=== PATIENT | female | born 1940 | race Caucasian/White ===

== ENCOUNTER 2019-09-23 01:26 | Inpatient (IN) | payer MEDICARE ==
[~2019-09-23] VITALS: Ht 162.6 cm; Wt 77.2 kg
[~2019-09-23 01:26] MED LIST: IBUPROFEN600 MG ORAL
--- NOTE | 2019-09-23 02:00 | NUR ---
ED Nurse Note: pt presents to ED s/p syncope at 0000 today. pt states that she was vomiting and has been feeling nauseated and when she returned from the restroom, she felt dizzy then lost consciousness. pt states she hit her head and has redness and swelling to her forehead. pt states she has a PIEDRA now and is experiencing some neck stiffness. pt denies ever experiencing this before and notes that she has had sinus congestion for a week
[2019-09-23 02:02] VITALS: BP 112/63
--- NOTE | 2019-09-23 02:04 | Emergency Room Report ---
History of Present Illness General Chief Complaint: Syncope Source: Patient Present Illness HPI 79-year-old female, history of hypertension history of smoking presents with syncopal episode 2 hours prior to arrival patient was having acute nausea vomiting, she passed out in the bathroom hit her head, positive LOC denies any chest pain or shortness of breath prior to the episode no history of heart attacks, patient presents for evaluation She denies any aggravating alleviating factors severity was moderate lasting a few minutes Allergies: Coded Allergies: AZITHROMYCIN (Verified Allergy, Unknown, 05/29/15) PENICILLIN (Verified Allergy, Unknown, 05/29/15) TETRACYCLINE (Verified Allergy, Unknown, 05/29/15) Patient History Past Medical History: see triage record Social History: Reports: smoking Reviewed Nursing Documentation: PMH: Agreed; PSxH: Agreed Nursing Documentation-PMH Hx Hypertension: Yes Hx Asthma: Yes Review of Systems All Other Systems: negative except mentioned in HPI Physical Exam Vital Signs Date Time Temp Pulse Resp B/P (MAP) Pulse Ox O2 Delivery O2 Flow Rate FiO2 09/23/19 01:34 98.4 91 16 112/63 (79) 90 Room Air Sp02 EP Interpretation: reviewed, normal General Appearance: well appearing, no apparent distress, alert Head: normocephalic, other - Forehead hematoma Eyes: bilateral eye PERRL, bilateral eye EOMI ENT: uvula midline, moist mucus membranes Neck: supple, thyroid normal, supple/symm/no masses Respiratory: lungs clear, no respiratory distress, no retraction, no accessory muscle use Cardiovascular #1: normal peripheral pulses, regular rate, rhythm, no edema, no gallop, no murmur Gastrointestinal: non tender, soft, no guarding, no rebound Musculoskeletal: normal inspection Neurologic: alert, oriented x3 Psychiatric: mood/affect normal Skin: no rash, warm/dry Medical Decision Making Diagnostic Impression: Primary Impression: Syncope Qualified Codes: R55 - Syncope and collapse Additional Impression: Hyponatremia ER Course 79-year-old female presents with syncopal episode differential diagnosis includes ACS, cardiac syncope, arrhythmia EKG negative, troponin negative, patient found to also have hyponatremia mild We will admit patient for syncope evaluation patient admitted to Dr. Amadou Calvert Laboratory Tests Test 09/23/19 01:53 White Blood Count 8.3 K/UL (4.8-10.8) Red Blood Count 4.36 M/UL (4.20-5.40) Hemoglobin 14.1 G/DL (12.0-16.0) Hematocrit 39.4 % (37.0-47.0) Mean Corpuscular Volume 90 FL (80-99) Mean Corpuscular Hemoglobin 32.4 PG (27.0-31.0) H Mean Corpuscular Hemoglobin Concent 35.9 G/DL (32.0-36.0) Red Cell Distribution Width 11.3 % (11.6-14.8) L Platelet Count 231 K/UL (150-450) Mean Platelet Volume 7.4 FL (6.5-10.1) Neutrophils (%) (Auto) 75.7 % (45.0-75.0) H Lymphocytes (%) (Auto) 14.9 % (20.0-45.0) L Monocytes (%) (Auto) 8.0 % (1.0-10.0) Eosinophils (%) (Auto) 0.6 % (0.0-3.0) Basophils (%) (Auto) 0.7 % (0.0-2.0) Sodium Level 128 MMOL/L (136-145) L Potassium Level 3.2 MMOL/L (3.5-5.1) L Chloride Level 93 MMOL/L (98-107) L Carbon Dioxide Level 29 MMOL/L (21-32) Anion Gap 6 mmol/L (5-15) Blood Urea Nitrogen 14 mg/dL (7-18) Creatinine 0.9 MG/DL (0.55-1.30) Estimate Glomerular Filtration Rate mL/min (>60) Glucose Level 170 MG/DL (74-106) H Calcium Level 9.1 MG/DL (8.5-10.1) Total Bilirubin 0.5 MG/DL (0.2-1.0) Aspartate Amino Transferase (AST) 28 U/L (15-37) Alanine Aminotransferase (ALT) 23 U/L (12-78) Alkaline Phosphatase 101 U/L (46-116) Troponin I 0.000 ng/mL (0.000-0.056) Total Protein 7.8 G/DL (6.4-8.2) Albumin 3.0 G/DL (3.4-5.0) L Globulin 4.8 g/dL Albumin/Globulin Ratio 0.6 (1.0-2.7) L EKG Diagnostic Results EKG Time: 01:52 EP Interpretation: NSR, rate 70, QTc 495, no acute ST elevations, normal axis Rhythm Strip Diag. Results Rhythm Strip Time: 02:03 EP Interpretation: yes Rate: 87 Rhythm: NSR, no PVC's, no ectopy Chest X-Ray Diagnostic Results Chest X-Ray Diagnostic Results : Chest X-Ray Ordered: Yes # of Views/Limited/Complete: 1 View Indication: Chest Pain EP Interpretation: Yes Interpretation: no consolidation, no effusion, no pneumothorax, no acute cardiopulmonary disease Impression: No acute disease Electronically Signed by: Shiv Jackson MD CT/MRI/US Diagnostic Results CT/MRI/US Diagnostic Results : Impression Preliminary Findings Only See Final Report For Complete Findings CT HEAD Without Contrast: Motion degraded study. Negative for evidence of mass, mass-effect or intracranial hemorrhage. Radiologist: Ishmael Bentley MD Study ready at 02:42 and initial results transmitted at 03:19 Last Vital Signs Date Time Temp Pulse Resp B/P (MAP) Pulse Ox O2 Delivery O2 Flow Rate FiO2 09/23/19 01:34 98.4 91 16 112/63 (79) 90 Room Air Disposition: ADMITTED INPATIENT Condition: Stable Shiv Jackson MD Sep 23, 2019 02:03
[2019-09-23 02:12] LABS: BASOPHILS % (AUTO) 0.7 % (0.0-2.0); EOSINOPHILS % (AUTO) 0.6 % (0.0-3.0); HEMATOCRIT 39.4 % (37.0-47.0); HEMOGLOBIN 14.1 G/DL (12.0-16.0); LYMPHOCYTES % (AUTO) 14.9 % (20.0-45.0); MEAN CORPUSCULAR VOLUME 90 FL (80-99); NEUTROPHILS % (AUTO) 75.7 % (45.0-75.0); PLATELET COUNT 231 K/UL (150-450); RED BLOOD COUNT 4.36 M/UL (4.20-5.40); RED CELL DISTRIBUTION WIDTH 11.3 % (11.6-14.8); WHITE BLOOD COUNT 8.3 K/UL (4.8-10.8)
[2019-09-23 02:26] LABS: ANION GAP 6 mmol/L (5-15); BLOOD UREA NITROGEN 14 mg/dL (7-18); CALCIUM 9.1 MG/DL (8.5-10.1); CARBON DIOXIDE 29 MMOL/L (21-32); CHLORIDE 93 MMOL/L (98-107); CREATININE 0.9 MG/DL (0.55-1.30); POTASSIUM 3.2 MMOL/L (3.5-5.1); SODIUM 128 MMOL/L (136-145)
[2019-09-23 02:30] LABS: ALANINE AMINOTRANSFERASE 23 U/L (12-78); ALBUMIN/GLOBULIN RATIO 0.6 (1.0-2.7); ALKALINE PHOSPHATASE 101 U/L (46-116); ASPARTATE AMINO TRANSFERASE 28 U/L (15-37); BILIRUBIN,TOTAL 0.5 MG/DL (0.2-1.0)
[2019-09-23] MEDS ORDERED: LOSARTAN POTASS50 MG ORAL (03:01)
[2019-09-23] MEDS ORDERED: METOPROLOL SUCC25 MG ORAL (03:01)
[2019-09-23] MEDS ORDERED: CHLORTHALIDONE25 MG ORAL (03:01)
--- NOTE | 2019-09-23 03:20 | Diagnostic Imaging Report ---
Indication: Headache Technique: Contiguous 5 mm thick transaxial imaging of the head obtained in a Siemens Sensation [address] scanner. Soft tissue and bone windows generated. Automatic Exposure Control was utilized. Total Dose length Product (DLP): 1426.[address] Dose Index Volume (CTDIvol): 62.7 mGy Comparison: none Findings: The size and configuration of the cortical sulci, basal cisterns, and ventricles are within normal limits for age. There is no mass effect, midline shift, or edema identified. There is no evidence of acute hemorrhage or abnormal intra-axial or extra-axial fluid collections. The bones and soft tissues are unremarkable. Impression: No mass effect, edema or acute bleed. The study is limited by motion [facility] has communicated the preliminary results to the Emergency Department. Their findings are largely concordant with this report. The CT scanner at [facility] is accredited by the [employer] and the scans are performed using dose optimization techniques as appropriate to a performed exam including Automatic Exposure control.
[2019-09-23 04:25] VITALS: BP 138/57
--- NOTE | 2019-09-23 04:37 | NUR ---
ED Nurse Note: report given to KELVIN Lim
--- NOTE | 2019-09-23 05:00 | NUR ---
NURSE NOTES: Received report form KELVIN Walls, pt. brought up form ER, pt. in bed awake, A/O x's4- able to make needs known, no signs or symptoms of acute cardiac or respiratory distress noted, Vital signs taken- full body assessment done- skin intact. Pt. appears to have a small lump to forehead from fall earlier today- per pt. feels a little tender but denies pain. pt. does state she has redness over some parts of body due to psoriasis. Pt. oriented to room and pt. teaching done, pt. belongings checked - pt. is wearing upper and lower dentures- belongings list signed, pt. appears to be sating well on room air at 95%, pt. does need assist to use bathroom as gait is unsteady and is aware to ask for assist, bed in lowest position, call light within easy reach, bed alarm on, side rails up x's3, patient safety attendant is placed, lt. ac 20G IV intact and patent, safety measures continued, will continue with plan of care.
[2019-09-23 05:20] VITALS: BP 147/76
--- NOTE | 2019-09-23 05:33 | NUR ---
NURSE NOTES: Will notify MD Dr. Calvert for admission orders.
--- NOTE | 2019-09-23 05:56 | NUR ---
NURSE NOTES: left message with Dr. Calvert's exchange with Sana for admission orders- awaiting for call back from doctor.
--- NOTE | 2019-09-23 06:03 | NUR ---
NURSE NOTES: per pt. she would like to be full code. medication list gone over with pt. - only correction made was to Metoprolol Succinate 25mg is PO TID not daily- Other medications in med reconcile are correct per patient.
--- NOTE | 2019-09-23 07:24 | NUR ---
HAND-OFF: Report given to Boni Rn, pt. remains stable and no distress noted.
--- NOTE | 2019-09-23 08:00 | NUR ---
NURSE NOTES: Pt awake/alert in bed, breathing easily on room air, denies SOB and denies pain at this time. Vital signs stable with 1st deg @ 76 on monitor. IV access LAC flushed with 10 ml NS and NS started at 100 ml/hr. Bed left in low position, side rails up x 2 and call light left near pt's hand.
[2019-09-23] MEDS: Aspirin Baby 81mg ORAL SCH (09:02)
[2019-09-23] MEDS: Losartan 50mg tab ORAL SCH (09:02)
--- NOTE | 2019-09-23 10:30 | Consultation ---
DATE OF CONSULTATION: 09/23/2019 CONSULTING PHYSICIAN: Adair Starkey M.D. REFERRING PHYSICIAN: Amadou Calvert D.O. REASON FOR CONSULTATION: Hyponatremia. HISTORY OF PRESENT ILLNESS: The patient is a very pleasant 79-year-old female with known hypertension and previous history of smoking, who presented after passing out/syncopal episode two hours prior to admission. She was having some nausea and vomiting. Passed out in the bathroom and hit her head. She states she did not lose consciousness. No chest pain. No shortness of breath. No palpitations. PAST MEDICAL HISTORY: 1. Hypertension. 2. Asthma. PAST SURGICAL HISTORY: Noncontributory. ALLERGIES: Azithromycin, penicillin, and tetracycline. FAMILY HISTORY: Positive for hypertension. REVIEW OF SYSTEMS: NEUROLOGIC: The patient had a syncopal episode. CARDIOVASCULAR: No current chest pain, palpitations, or angina. PULMONARY: No difficulty breathing, productive cough, or sputum. GASTROINTESTINAL/GENITOURINARY: No change in urinary or bowel habits. No nausea, vomiting, or diarrhea. ENDOCRINOLOGY: No night sweats, fevers, or chills PHYSICAL EXAMINATION: VITAL SIGNS: Blood pressure 147/76, respiratory rate 17, pulse 86, and temperature 97.6. 95% oxygen saturation on room air. GENERAL: The patient is awake and alert, not in distress. HEENT: Extraocular muscles intact. No lymphadenopathy noted. CARDIOVASCULAR: S1, S2. No rubs or gallops. PULMONARY: Clear to auscultation bilaterally. No rales, rhonchi or wheezes. ABDOMEN: Nondistended and nontender. EXTREMITIES: No edema. LABORATORY DATA: Labs dated September 23, 2019, white cell count 8.3, hemoglobin 14.1, and platelet count 231,000. Sodium 128, potassium 3.2, creatinine 0.9. ASSESSMENT AND PLAN: 1. Hyponatremia. It sounds like secondary to combination of volume depletion while being on thiazide. Thiazide diuretic will be discontinued. The patient will be initiated on isotonic solution. Hyponatremia is mild at 128. We will follow levels during hospitalization. 2. Syncopal episode. Defer management to Cardiology. 3. Hypertension. We will adjust medications as deemed appropriate. Let me take this opportunity to thank Dr. Amadou Calvert. Adair Starkey MD DR: ROBERTA JOB#: [id number] CC:
--- NOTE | 2019-09-23 10:36 | Cardiac Electrophysiology PN ---
Subjective Subjective [id number] Objective Last 24 Hour Vital Signs Date Time Temp Pulse Resp B/P (MAP) Pulse Ox O2 Delivery O2 Flow Rate FiO2 09/23/19 09:02 86 147/76 09/23/19 09:02 147/76 09/23/19 05:20 97.6 86 17 147/76 (99) 95 09/23/19 05:03 Room Air 09/23/19 04:51 87 09/23/19 04:40 98.4 74 15 138/57 97 Room Air 09/23/19 04:25 74 15 138/57 97 Room Air 09/23/19 02:02 98.4 92 16 112/63 90 Room Air 09/23/19 01:34 98.4 91 16 112/63 (79) 90 Room Air Intake and Output 09/22/19 09/23/19 19:00 07:00 Intake Total 0 ml Balance 0 ml Intake Oral 0 ml # Voids 1 # Bowel Movements 1 Laboratory Tests Test 09/23/19 01:53 White Blood Count 8.3 K/UL (4.8-10.8) Red Blood Count 4.36 M/UL (4.20-5.40) Hemoglobin 14.1 G/DL (12.0-16.0) Hematocrit 39.4 % (37.0-47.0) Mean Corpuscular Volume 90 FL (80-99) Mean Corpuscular Hemoglobin 32.4 PG (27.0-31.0) H Mean Corpuscular Hemoglobin Concent 35.9 G/DL (32.0-36.0) Red Cell Distribution Width 11.3 % (11.6-14.8) L Platelet Count 231 K/UL (150-450) Mean Platelet Volume 7.4 FL (6.5-10.1) Neutrophils (%) (Auto) 75.7 % (45.0-75.0) H Lymphocytes (%) (Auto) 14.9 % (20.0-45.0) L Monocytes (%) (Auto) 8.0 % (1.0-10.0) Eosinophils (%) (Auto) 0.6 % (0.0-3.0) Basophils (%) (Auto) 0.7 % (0.0-2.0) Sodium Level 128 MMOL/L (136-145) L Potassium Level 3.2 MMOL/L (3.5-5.1) L Chloride Level 93 MMOL/L (98-107) L Carbon Dioxide Level 29 MMOL/L (21-32) Anion Gap 6 mmol/L (5-15) Blood Urea Nitrogen 14 mg/dL (7-18) Creatinine 0.9 MG/DL (0.55-1.30) Estimat Glomerular Filtration Rate mL/min (>60) Glucose Level 170 MG/DL (74-106) H Calcium Level 9.1 MG/DL (8.5-10.1) Total Bilirubin 0.5 MG/DL (0.2-1.0) Aspartate Amino Transf (AST/SGOT) 28 U/L (15-37) Alanine Aminotransferase (ALT/SGPT) 23 U/L (12-78) Alkaline Phosphatase 101 U/L (46-116) Troponin I 0.000 ng/mL (0.000-0.056) Total Protein 7.8 G/DL (6.4-8.2) Albumin 3.0 G/DL (3.4-5.0) L Globulin 4.8 g/dL Albumin/Globulin Ratio 0.6 (1.0-2.7) L Tarun Flores MD Sep 23, 2019 10:36
--- NOTE | 2019-09-23 12:03 | NUR ---
CASE MANAGEMENT:REVIEW 79 YR OLD FEMALE PRESENTED TO OUR ER CC; FALL. EMESIS SI: SYNCOPE. HYPONATREMIA 98.4 91 16 112/63 90% ON RA NA-128 IS: 1L NS BOLUS CT HEAD CHEST XRAY : TELEMETRY STATUS
--- NOTE | 2019-09-23 13:54 | Diagnostic Imaging Report ---
Indication: Dyspnea Comparison: None A single view chest radiograph was obtained. Findings: Cardiomediastinal appearance is within normal limits for age. The lungs are clear. Pulmonary vascularity is appropriate. The diaphragmatic contour is smooth and costophrenic angles are sharp. No pleural effusions are identified. The bones are osteopenic. Impression: No acute findings
--- NOTE | 2019-09-23 14:10 | NUR ---
PT EVALUATION NOTE Patient seen for initial evaluation. Patient presents with generalized weakness which impairs balance and patient's ability to perform mobility skills safely. Patient requires supervision for transfers and SBA for ambulation due to slight unsteadiness. Patient denies dizziness with transfers and ambulation however c/o feeling weak. Patient will benefit from skilled inpatient PT intervention to address strength, balance and safety for increased level of independence with functional mobility. Recommend discharge home once medically cleared by MD. No DME needs anticipated at this time. Addendum: 09/23/19 at 1438 by YAHAIRA JOHANSEN PT Amended: Links added.
--- NOTE | 2019-09-23 15:30 | History and Physical Report ---
DATE OF ADMISSION: 09/23/2019 APPROXIMATE TIME: 9 a.m. CONSULTANTS: 1. . 2. Tarun Flores M.D. 3. Adair Starkey M.D. CHIEF COMPLAINT: Syncope, dizziness. BRIEF HISTORY: This is an 79-year-old female, who lives at home, apparently had a syncopal episode where she passed out. She was feeling dizzy prior. No chest pain. No shortness of breath. She came to [facility], diagnosed with above, admitted to telemetry for further care. Currently, calm in bed, eating, no complaint. No chest pain. No shortness of breath. No nausea, vomiting, or diarrhea. PAST MEDICAL HISTORY: Include hypertension. PAST SURGICAL HISTORY: Tonsillectomy. MEDICATIONS: Include aspirin, losartan, metoprolol, potassium, Zofran. ALLERGIES: Penicillin, tetracycline, and azithromycin. SOCIAL HISTORY: No smoking. No alcohol. No intravenous drug abuse. FAMILY HISTORY: Noncontributory. PHYSICAL EXAMINATION: GENERAL: Calm in bed, oriented x3, no acute distress. Slight bruising around the nasal bone area. VITAL SIGNS: Temperature 97, pulse 86, respiratory rate 17, blood pressure 147/76. CARDIOVASCULAR: No murmur. LUNGS: Distant and clear. ABDOMEN: Bowel sounds positive. Soft, nontender, nondistended. EXTREMITIES: No cyanosis or edema. NEUROLOGIC: The patient moves all extremities, slightly weak. LABORATORY AND DIAGNOSTIC DATA: CBC is normal. BMP shows sodium 128, potassium 3.2, chloride 93, glucose 170. Troponin 0.00. Albumin 3.0. ASSESSMENT: 1. Syncope. 2. Hyponatremia. 3. Hypertension. 4. Diabetes. 5. Malnutrition. PLAN: 1. PT, dietary evaluation . 2. Blood pressure and blood sugar control. 3. Cardiology workup. 4. Neurology workup. 5. We will add Dr. Pisano Endocrine evaluation to discuss possible new onset of diabetes. 6. Continue to follow the patient. 7. CBC and BMP in the morning. Amadou Calvert D.O. DR: Domingo JOB#: [id number] CC:
--- NOTE | 2019-09-23 16:45 | Consultation ---
DATE OF CONSULTATION: 09/23/2019 CARDIOLOGY CONSULTATION CONSULTING PHYSICIAN: Tarun Flores M.D. REFERRING PHYSICIAN: Amadou Calvert D.O. REASON FOR CONSULTATION: Syncope and hypertension. HISTORY OF PRESENT ILLNESS: The patient is an 79-year-old lady under cardiology care of with history of hypertension and smoking, presents to the emergency room after a syncopal episode 12 hours prior to the arrival at the emergency room. The patient was having nausea and vomiting and she passed out in the bathroom and hit her head and loss of consciousness. The patient denies any chest pain or shortness of breath prior to the episodes. The patient has no prior myocardial infarction or coronary artery disease. REVIEW OF SYSTEMS: Negative other than what was mentioned in the history of present illness. PAST MEDICAL HISTORY: As mentioned above. ALLERGIES: She is allergic to azithromycin, penicillin, tetracycline. SOCIAL HISTORY: She lives at home. Does not do any drugs or drink alcohol. PHYSICAL EXAMINATION: VITAL SIGNS: Show blood pressure of 147/76, pulse 86, respirations 18, temperature 97.5. HEAD AND NECK: Shows no JVD. Has a bruise on left eye. LUNGS: Clear. CARDIOVASCULAR: Shows regular S1 and S2 with no gallop or murmur. ABDOMEN: Soft. EXTREMITIES: No pitting edema. LABORATORY AND DIAGNOSTIC DATA: Her labs show white count of 8.3, hemoglobin of 14, hematocrit 39, and platelet count 231. Sodium 128, potassium 3.2, BUN of 14, creatinine 0.9, and glucose of 170. Troponin is negative. ASSESSMENT AND PLAN: 1. Syncopal episode. Etiology is not clear at this time. The first troponin is negative. We will completely rule out MN protocol. Get an echocardiogram, carotid duplex as well as check orthostatic vital signs. 2. History of hypertension. Blood pressure currently is stable on metoprolol 25 mg b.i.d. and losartan 50 mg daily. That will be continued. Despite these medications, blood pressure is 147/76. 3. History of asthma. Thank you very much, Dr. Calvert, for allowing me to participate in the care of this patient. Please do not hesitate to contact me for any questions regarding my evaluation. Tarun Flores M.D. DR: TYRONE JOB#: [id number] CC:
--- NOTE | 2019-09-23 16:54 | Diagnostic Imaging Report ---
Indication: Syncope TECHNIQUE: Duplex extracranial carotid and vertebral artery sonography performed with color flow imaging and waveform analysis. COMPARISON: None FINDINGS: Right carotid: Grayscale and color-flow imaging demonstrating no hemodynamically significant stenosis within the common carotid artery, extracranial internal carotid artery. Peak systolic and end-diastolic velocities are within normal limits. ICA/CCA ratios are within normal limits. Mild heterogeneous plaques are demonstrated consistent with atherosclerotic disease. Left carotid: Grayscale and color-flow imaging demonstrating no hemodynamically significant stenosis within the common carotid artery, extracranial internal carotid artery. Peak systolic and end-diastolic velocities are within normal limits. ICA/CCA ratios are within normal limits. Mild heterogeneous plaques are demonstrated consistent with atherosclerotic disease. Vertebral arteries: Antegrade flow demonstrated within both vertebral arteries. IMPRESSION: No hemodynamically significant extracranial carotid artery stenosis identified. Antegrade flow within both vertebral arteries. This report utilizes carotid stenosis grading criteria based on the meeting of Society of radiologists in ultrasound consensus conference, May 2002.
--- NOTE | 2019-09-23 19:00 | NUR ---
NURSE NOTES: Received report from KELVIN Plata. Patient is awake, lying in semi carvalho's; resting comfortably. A/Ox4. Denies pain at this time. No signs of acute distress noted. Checked IV site and flushed. No erythema, bleeding or infiltration noted. Bed at lowest position, brakes on, siderailsx3. Call light within reach. Will continue to monitor.
[2019-09-23 20:00] VITALS: BP 134/55
[2019-09-23] MEDS: Albuterol/Ipratropium 3ml neb HHN PRN (22:41)
[2019-09-24] VITALS (7 sets, daily range): BP systolic 118–145; BP diastolic 50–65
--- NOTE | 2019-09-24 01:50 | NUR ---
NURSE NOTES: Resting throughout the night. No significant change of condition noted. Will continue to monitor.
[2019-09-24 03:22] LABS: BASOPHILS % (AUTO) 0.8 % (0.0-2.0); EOSINOPHILS % (AUTO) 0.2 % (0.0-3.0); HEMATOCRIT 33.1 % (37.0-47.0); HEMOGLOBIN 12.2 G/DL (12.0-16.0); LYMPHOCYTES % (AUTO) 24.8 % (20.0-45.0); MEAN CORPUSCULAR VOLUME 89 FL (80-99); MONOCYTES % (AUTO) 10.2 % (1.0-10.0); NEUTROPHILS % (AUTO) 63.9 % (45.0-75.0); PLATELET COUNT 192 K/UL (150-450); RED BLOOD COUNT 3.72 M/UL (4.20-5.40); RED CELL DISTRIBUTION WIDTH 11.5 % (11.6-14.8)
[2019-09-24 03:35] LABS: ANION GAP 9 mmol/L (5-15); BLOOD UREA NITROGEN 10 mg/dL (7-18); CALCIUM 8.4 MG/DL (8.5-10.1); CARBON DIOXIDE 26 MMOL/L (21-32); CHLORIDE 96 MMOL/L (98-107); CREATININE 0.8 MG/DL (0.55-1.30); SODIUM 131 MMOL/L (136-145)
--- NOTE | 2019-09-24 04:45 | NUR ---
NURSE NOTES: Notified Dr. Calvert of patient's K 3.0. Per Dr. Calvert to give KCl 40mEq PO x1, CBC, BMP in AM. Noted and carried out.
--- NOTE | 2019-09-24 06:30 | NUR ---
NURSE NOTES: Notified Dr. Flores of patient's Troponin result of 0.017. No signs of pain nor distress noted. Vital signs stable. Awaiting for callback.
--- NOTE | 2019-09-24 07:15 | NUR ---
HAND-OFF: Report given to KELVIN Blount. Plan of care endorsed.
--- NOTE | 2019-09-24 08:05 | NUR ---
NURSE NOTES: pt in bed just had breakfast. 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 Call light within reach. Bed in lowest position and locked. Pt reports no pain. Aox4. will continue to follow plans of care.
--- NOTE | 2019-09-24 08:15 | Consultation ---
DATE OF CONSULTATION: 09/24/2019 ENDOCRINOLOGY CONSULTATION CONSULTING PHYSICIAN: Ruperto Pisano M.D. REFERRING PHYSICIAN: Amadou Calvert D.O. REASON FOR CONSULTATION: Possible diabetes. HISTORY OF PRESENT ILLNESS: The patient is an 79-year-old female with history of hypertension and smoking, presents to the emergency department of [facility] after a syncopal episode, which was preceded by nausea and vomiting. The patient has no history of cardiac event or coronary artery disease. There is no history of diabetes. She is not taking any diabetic medication. MEDICATIONS: Her home medications are blood pressure medications, chlorthalidone, losartan, metoprolol, as well as ibuprofen as needed. PAST MEDICAL HISTORY: Hypertension. REVIEW OF SYSTEMS: A 12-point review of systems was performed and pertinent positives and negatives are mentioned in the history of present illness. ALLERGIES: To azithromycin, penicillin, and tetracycline. SOCIAL HISTORY: The patient is a smoker. No alcohol or drug use. LABORATORY DATA: WBC 5, hemoglobin 12, hematocrit 33, platelets of 192. Sodium 131, potassium 3, chloride 96, bicarb 26, BUN 10, creatinine 0.8, glucose of 108, calcium 8.4. BNP of 529. Troponins are negative. Glucose on presentation was 170. PHYSICAL EXAMINATION: VITAL SIGNS: Blood pressure is 118/50, pulse of 75, temperature of 97.9. HEENT: Pupils are equal and reactive to light. Sclerae anicteric. NECK: No JVD. HEART: Regular. LUNGS: Clear. ABDOMEN: Positive bowel sounds. EXTREMITIES: No edema. DIAGNOSES: 1. Syncopal episode. 2. Hypertension. 3. Diabetes. RECOMMENDATION: There is no need to check or monitor blood glucose four times a day or cover her with insulin. I will simply order a hemoglobin A1c, which is a more accurate way of assessing her glycemic control. So far, no intervention for blood glucose and there is no evidence of hypoglycemia either. Thank you, Dr. Calvert, for the courtesy of this consultation. Ruperto Pisano M.D. DR: KELVIN/BLANCA JOB#: [id number] CC: TETE
--- NOTE | 2019-09-24 08:20 | Cardiac Electrophysiology PN ---
Assessment/Plan Assessment/Plan 1. Syncopal episode. Etiology is not clear at this time. Ruled out for [place]. Echocardiogram nl EF and no . No critical issues on carotid duplex Orthostatic vital signs were also negative. Neuro Eval 2. History of hypertension.Stable on metoprolol 25 mg b.i.d. and losartan 50 mg daily. 3. History of asthma 4. Hypokalemia, replace again 5. Hyponatremia, FU DR Starkey on fluid restriction DW RN. Subjective Subjective Feeling better. No CP or SOB, In SR with no arrhythmias Objective Last 24 Hour Vital Signs Date Time Temp Pulse Resp B/P (MAP) Pulse Ox O2 Delivery O2 Flow Rate FiO2 09/24/19 04:00 75 09/24/19 04:00 97.9 66 18 118/50 (72) 94 09/24/19 00:00 78 82 87 09/24/19 00:00 97.9 64 18 128/58 (81) 94 09/24/19 00:00 75 09/23/19 22:51 85 20 97 Nasal Cannula 2.0 28 09/23/19 22:41 94 Nasal Cannula 2.0 28 09/23/19 22:41 84 20 94 Nasal Cannula 2.0 28 09/23/19 22:40 84 20 94 Nasal Cannula 2.0 28 09/23/19 21:00 Room Air 09/23/19 20:19 82 134/55 09/23/19 20:00 84 09/23/19 20:00 99.0 82 18 134/55 (81) 95 09/23/19 16:00 84 09/23/19 14:14 72 74 76 09/23/19 12:00 86 09/23/19 09:02 86 147/76 09/23/19 09:02 147/76 09/23/19 09:00 Room Air Intake and Output 09/23/19 09/24/19 19:00 07:00 Intake Total 671.67 ml 1315 ml Balance 671.67 ml 1315 ml Intake Oral 600 ml 300 ml IV Total 71.67 ml 1015 ml # Voids 2 8 # Bowel Movements 1 1 Laboratory Tests Test 09/23/19 11:05 09/23/19 18:39 09/24/19 02:52 Troponin I 0.009 ng/mL (0.000-0.056) 0.009 ng/mL (0.000-0.056) 0.017 ng/mL (0.000-0.056) White Blood Count 5.0 K/UL (4.8-10.8) Red Blood Count 3.72 M/UL (4.20-5.40) L Hemoglobin 12.2 G/DL (12.0-16.0) Hematocrit 33.1 % (37.0-47.0) L Mean Corpuscular Volume 89 FL (80-99) Mean Corpuscular Hemoglobin 32.8 PG (27.0-31.0) H Mean Corpuscular Hemoglobin Concent 36.9 G/DL (32.0-36.0) H Red Cell Distribution Width 11.5 % (11.6-14.8) L Platelet Count 192 K/UL (150-450) Mean Platelet Volume 7.3 FL (6.5-10.1) Neutrophils (%) (Auto) 63.9 % (45.0-75.0) Lymphocytes (%) (Auto) 24.8 % (20.0-45.0) Monocytes (%) (Auto) 10.2 % (1.0-10.0) H Eosinophils (%) (Auto) 0.2 % (0.0-3.0) Basophils (%) (Auto) 0.8 % (0.0-2.0) Sodium Level 131 MMOL/L (136-145) L Potassium Level 3.0 MMOL/L (3.5-5.1) L Chloride Level 96 MMOL/L (98-107) L Carbon Dioxide Level 26 MMOL/L (21-32) Anion Gap 9 mmol/L (5-15) Blood Urea Nitrogen 10 mg/dL (7-18) Creatinine 0.8 MG/DL (0.55-1.30) Estimat Glomerular Filtration Rate mL/min (>60) Glucose Level 108 MG/DL (74-106) H Calcium Level 8.4 MG/DL (8.5-10.1) L Pro-B-Type Natriuretic Peptide 529 pg/mL (0-125) H Objective HEAD AND NECK: No JVD. Has a bruise on left eye. LUNGS: Clear. CARDIOVASCULAR: Shows regular S1 and S2 with no gallop or murmur. ABDOMEN: Soft. EXTREMITIES: No pitting edema. Tarun Flores MD Sep 24, 2019 08:20
[2019-09-24] MEDS: Aspirin Baby 81mg ORAL SCH (09:14)
[2019-09-24] MEDS: Losartan 50mg tab ORAL SCH (09:15)
--- NOTE | 2019-09-24 10:20 | Nephrology Progress Note ---
Assessment/Plan Assessment/Plan: A/P 1) Hyponatremia - Na up to 131 - hold Thiazide and DC IVFs - OK for Dc from renal poitn 2) Syncope- per cardiology 3) HTN- stable adjust meds as necessary Subjective Date patient seen: Sep 24, 2019 Time patient seen: 10:18 ROS Limited/Unobtainable: No Allergies: Coded Allergies: AZITHROMYCIN (Verified Allergy, Unknown, 05/29/15) PENICILLIN (Verified Allergy, Unknown, 05/29/15) TETRACYCLINE (Verified Allergy, Unknown, 05/29/15) Subjective Patient feeling better Objective Last 24 Hour Vital Signs Date Time Temp Pulse Resp B/P (MAP) Pulse Ox O2 Delivery O2 Flow Rate FiO2 09/24/19 09:21 96 Nasal Cannula 2.0 28 09/24/19 09:21 74 20 94 Nasal Cannula 2.0 28 09/24/19 09:15 134/62 09/24/19 09:14 78 134/62 09/24/19 08:00 99.0 78 18 134/62 (86) 98 09/24/19 04:00 75 09/24/19 04:00 97.9 66 18 118/50 (72) 94 09/24/19 00:00 78 82 87 09/24/19 00:00 97.9 64 18 128/58 (81) 94 09/24/19 00:00 75 09/23/19 22:51 85 20 97 Nasal Cannula 2.0 28 09/23/19 22:41 94 Nasal Cannula 2.0 28 09/23/19 22:41 84 20 94 Nasal Cannula 2.0 28 09/23/19 22:40 84 20 94 Nasal Cannula 2.0 28 09/23/19 21:00 Room Air 09/23/19 20:19 82 134/55 09/23/19 20:00 84 09/23/19 20:00 99.0 82 18 134/55 (81) 95 09/23/19 16:00 84 09/23/19 14:14 72 74 76 09/23/19 12:00 86 Intake and Output 09/23/19 09/24/19 19:00 07:00 Intake Total 671.67 ml 1315 ml Balance 671.67 ml 1315 ml Intake Oral 600 ml 300 ml IV Total 71.67 ml 1015 ml # Voids 2 8 # Bowel Movements 1 1 Laboratory Tests 09/23/19 11:05: Troponin I 0.009 09/23/19 18:39: Troponin I 0.009 09/24/19 02:52: Troponin I 0.017, White Blood Count 5.0, Red Blood Count 3.72L, Hemoglobin 12.2 , Hematocrit 33.1L, Mean Corpuscular Volume 89, Mean Corpuscular Hemoglobin 32.8H, Mean Corpuscular Hemoglobin Concent 36.9H, Red Cell Distribution Width 11.5L, Platelet Count 192, Mean Platelet Volume 7.3, Neutrophils (%) (Auto) 63.9 , Lymphocytes (%) (Auto) 24.8, Monocytes (%) (Auto) 10.2H, Eosinophils (%) (Auto ) 0.2, Basophils (%) (Auto) 0.8, Sodium Level 131L, Potassium Level 3.0L, Chloride Level 96L, Carbon Dioxide Level 26, Anion Gap 9, Blood Urea Nitrogen 10 , Creatinine 0.8, Estimat Glomerular Filtration Rate , Glucose Level 108H, Calcium Level 8.4L, Pro-B-Type Natriuretic Peptide 529H Height (Feet): 5 Height (Inches): 4.00 Weight (Pounds): 165 General Appearance: no apparent distress, alert EENT: normal ENT inspection Neck: normal alignment, supple Cardiovascular: normal rate, regular rhythm Respiratory/Chest: lungs clear, normal breath sounds Abdomen: non tender, soft Edema: no edema noted Arm (L), no edema noted Arm (R), no edema noted Leg (L), no edema noted Leg (R), no edema noted Pedal (L), no edema noted Pedal (R), no edema noted Generalized Adair Starkey MD Sep 24, 2019 10:20
--- NOTE | 2019-09-24 10:33 | NUR ---
PT DISCHARGE NOTE Patient is at independent/supervised level with all mobility. Patient is safe to function with nursing supervision, no further skilled inpatient PT intervention indicated. Patient discharged from PT, Mine WARREN notified. Addendum: 09/24/19 at 1034 by YAHAIRA JOHANSEN PT Amended: Links added.
--- NOTE | 2019-09-24 13:18 | General Progress Note ---
Assessment/Plan Problem List: (1) HTN (hypertension) ICD Codes: I10 - Essential (primary) hypertension SNOMED: 64685363 (2) Diabetes ICD Codes: E11.9 - Type 2 diabetes mellitus without complications SNOMED: 89244450 (3) Malnutrition ICD Codes: E46 - Unspecified protein-calorie malnutrition SNOMED: 64347626 (4) Hyponatremia ICD Codes: E87.1 - Hypo-osmolality and hyponatremia SNOMED: 65190150 (5) Syncope ICD Codes: R55 - Syncope and collapse SNOMED: 156473933 Qualifiers: Qualified Codes: R55 - Syncope and collapse Status: stable, progressing Assessment/Plan: pt diet cardio neuro eval cbc bmp am aru eval Subjective Constitutional: Reports: weakness Allergies: Coded Allergies: AZITHROMYCIN (Verified Allergy, Unknown, 05/29/15) PENICILLIN (Verified Allergy, Unknown, 05/29/15) TETRACYCLINE (Verified Allergy, Unknown, 05/29/15) All Systems: reviewed and negative except above Subjective o2nc calm Objective Last 24 Hour Vital Signs Date Time Temp Pulse Resp B/P (MAP) Pulse Ox O2 Delivery O2 Flow Rate FiO2 09/24/19 12:00 98.4 69 18 145/65 (91) 95 09/24/19 12:00 68 145 73 09/24/19 09:21 96 Nasal Cannula 2.0 28 09/24/19 09:21 74 20 94 Nasal Cannula 2.0 28 09/24/19 09:15 134/62 09/24/19 09:14 78 134/62 09/24/19 09:00 Room Air 09/24/19 08:00 99.0 78 18 134/62 (86) 98 09/24/19 08:00 76 09/24/19 04:00 75 09/24/19 04:00 97.9 66 18 118/50 (72) 94 09/24/19 00:00 78 82 87 09/24/19 00:00 97.9 64 18 128/58 (81) 94 09/24/19 00:00 75 09/23/19 22:51 85 20 97 Nasal Cannula 2.0 28 09/23/19 22:41 94 Nasal Cannula 2.0 28 09/23/19 22:41 84 20 94 Nasal Cannula 2.0 28 09/23/19 22:40 84 20 94 Nasal Cannula 2.0 28 09/23/19 21:00 Room Air 09/23/19 20:19 82 134/55 09/23/19 20:00 84 09/23/19 20:00 99.0 82 18 134/55 (81) 95 09/23/19 16:00 84 09/23/19 14:14 72 74 76 Intake and Output 09/23/19 09/24/19 19:00 07:00 Intake Total 671.67 ml 1315 ml Balance 671.67 ml 1315 ml Intake Oral 600 ml 300 ml IV Total 71.67 ml 1015 ml # Voids 2 8 # Bowel Movements 1 1 Laboratory Tests 09/23/19 18:39: Troponin I 0.009 09/24/19 02:52: Troponin I 0.017, White Blood Count 5.0, Red Blood Count 3.72L, Hemoglobin 12.2 , Hematocrit 33.1L, Mean Corpuscular Volume 89, Mean Corpuscular Hemoglobin 32.8H, Mean Corpuscular Hemoglobin Concent 36.9H, Red Cell Distribution Width 11.5L, Platelet Count 192, Mean Platelet Volume 7.3, Neutrophils (%) (Auto) 63.9 , Lymphocytes (%) (Auto) 24.8, Monocytes (%) (Auto) 10.2H, Eosinophils (%) (Auto ) 0.2, Basophils (%) (Auto) 0.8, Sodium Level 131L, Potassium Level 3.0L, Chloride Level 96L, Carbon Dioxide Level 26, Anion Gap 9, Blood Urea Nitrogen 10 , Creatinine 0.8, Estimat Glomerular Filtration Rate , Glucose Level 108H, Calcium Level 8.4L, Pro-B-Type Natriuretic Peptide 529H Height (Feet): 5 Height (Inches): 4.00 Weight (Pounds): 165 General Appearance: lethargic EENT: normal ENT inspection Neck: non-tender Cardiovascular: normal peripheral pulses, normal rate, regular rhythm Respiratory/Chest: chest wall non-tender, lungs clear, normal breath sounds Abdomen: normal bowel sounds, non tender, soft Extremities: normal inspection Edema: no edema noted Arm (L), no edema noted Arm (R), no edema noted Leg (L), no edema noted Leg (R), no edema noted Pedal (L), no edema noted Pedal (R), no edema noted Generalized Neurologic: responsive, motor weakness Skin: normal pigmentation, warm/dry Amadou Calvert DO Sep 24, 2019 13:18
--- NOTE | 2019-09-24 15:03 | NUR ---
*-* DISCHARGE PLANNING*-* PATIENT HAS BEEN REFERRED TO: [facility] ALVAREZ P: [phone] F: [phone]
--- NOTE | 2019-09-24 16:47 | NUR ---
*-* DISCHARGE PLANNING*-* PATIENT HAS BEEN REFERRED TO: S/W [facility] WIAnastacio/ [facility] PATIENT HAS BEEN DECLINED PER [facility] PATIENT TOO STABLE
--- NOTE | 2019-09-24 19:10 | NUR ---
NURSE NOTES: Received report from KELVIN Blount, pt. in bed awake, A/O x's4 able to make needs known, no signs or symptoms of acute cardiac or respiratory distress noted, bed alarm on, side rails up x's3 and safety brakes engaged, pt. has 2L NC on and appears to be sating well- no distress noted, pt. appears to be resting comfortably in bed watching television, per endorsement pt. has BRP and appears to have steady gait- pt. is aware to ask for assist when ambulating, left AC 20G IV intact and patent- SL, safety measures continued will continue with plan of care.
--- NOTE | 2019-09-24 19:42 | NUR ---
NURSE NOTES: Report given to Ede/KELVIN, pt in stable condition waiting for breathing treatment. I have notified respiratory techs twice before.
[2019-09-24] MEDS: Albuterol/Ipratropium 3ml neb HHN PRN (19:50)
[2019-09-25] VITALS: BP 130/62
[2019-09-25 04:00] VITALS: BP 131/59
--- NOTE | 2019-09-25 06:49 | General Progress Note ---
Assessment/Plan Problem List: (1) Hyperglycemia ICD Codes: R73.9 - Hyperglycemia, unspecified SNOMED: 02306086 (2) Fibula fracture ICD Codes: S82.409A - Unspecified fracture of shaft of unspecified fibula, initial encounter for closed fracture SNOMED: 31095813 (3) Hyponatremia ICD Codes: E87.1 - Hypo-osmolality and hyponatremia SNOMED: 16253565 (4) Syncope ICD Codes: R55 - Syncope and collapse SNOMED: 082850062 Qualifiers: Qualified Codes: R55 - Syncope and collapse Status: stable, progressing Assessment/Plan: follow A1c - pending no need to for glucose monitoring or insulin coverage Subjective Allergies: Coded Allergies: AZITHROMYCIN (Verified Allergy, Unknown, 05/29/15) PENICILLIN (Verified Allergy, Unknown, 05/29/15) TETRACYCLINE (Verified Allergy, Unknown, 05/29/15) Subjective events noted interval notes reviewed glucose is stable Objective Last 24 Hour Vital Signs Date Time Temp Pulse Resp B/P (MAP) Pulse Ox O2 Delivery O2 Flow Rate FiO2 09/25/19 04:00 2.0 09/25/19 04:00 97.7 65 18 131/59 (83) 98 09/25/19 03:27 60 09/25/19 00:00 2.0 09/25/19 00:00 76 82 81 09/25/19 00:00 98.1 76 18 130/62 (84) 98 09/24/19 23:31 84 09/24/19 21:00 Room Air 09/24/19 20:54 93 126/62 09/24/19 20:00 99.1 95 16 126/62 (83) 97 09/24/19 20:00 2.0 09/24/19 20:00 76 20 98 Nasal Cannula 2.0 28 09/24/19 19:57 95 Nasal Cannula 2.0 28 09/24/19 19:53 79 09/24/19 19:52 80 20 99 Nasal Cannula 2.0 28 76 20 98 09/24/19 16:00 99.3 77 18 144/56 (85) 96 09/24/19 16:00 71 09/24/19 12:00 98.4 69 18 145/65 (91) 95 09/24/19 12:00 108 09/24/19 12:00 68 145 73 09/24/19 09:21 96 Nasal Cannula 2.0 28 09/24/19 09:21 74 20 94 Nasal Cannula 2.0 28 09/24/19 09:15 134/62 09/24/19 09:14 78 134/62 09/24/19 09:00 Room Air 09/24/19 08:00 99.0 78 18 134/62 (86) 98 09/24/19 08:00 76 Intake and Output 09/24/19 09/25/19 19:00 07:00 Intake Total 630 ml Balance 630 ml Intake Oral 630 ml # Voids 3 2 # Bowel Movements 1 1 Laboratory Tests 09/25/19 05:25: White Blood Count [Pending], Red Blood Count [Pending], Hemoglobin [Pending], Hematocrit [Pending], Mean Corpuscular Volume [Pending], Mean Corpuscular Hemoglobin [Pending], Mean Corpuscular Hemoglobin Concent [Pending], Red Cell Distribution Width [Pending], Platelet Count [Pending], Mean Platelet Volume [ Pending], Neutrophils (%) (Auto) [Pending], Lymphocytes (%) (Auto) [Pending], Monocytes (%) (Auto) [Pending], Eosinophils (%) (Auto) [Pending], Basophils (%) (Auto) [Pending], Sodium Level [Pending], Potassium Level [Pending], Chloride Level [Pending], Carbon Dioxide Level [Pending], Blood Urea Nitrogen [Pending], Creatinine [Pending], Estimat Glomerular Filtration Rate [Pending], Glucose Level [Pending], Calcium Level [Pending] Height (Feet): 5 Height (Inches): 4.00 Weight (Pounds): 170 General Appearance: no apparent distress Neck: normal alignment Cardiovascular: normal rate Respiratory/Chest: lungs clear Abdomen: normal bowel sounds Pelvis: normal external exam Objective Current Medications Medications (Trade) Dose Ordered Sig/Maik Route PRN Reason Start Time Stop Time Status Last Admin Dose Admin Acetaminophen (Tylenol) 650 mg Q4H PRN ORAL Mild Pain (Pain Scale 1-3) 09/23/19 08:15 10/23/19 08:14 Albuterol/ Ipratropium (Albuterol/ Ipratropium) 3 ml Q6HRT PRN HHN Shortness of Breath 09/23/19 22:30 09/28/19 22:29 09/24/19 19:50 Aspirin (ASA) 81 mg DAILY ORAL 09/23/19 09:00 10/23/19 08:59 09/24/19 09:14 Dextrose (Dextrose 50%) 25 ml Q30M PRN IV Hypoglycemia 09/23/19 08:15 10/23/19 08:14 Dextrose (Dextrose 50%) 50 ml Q30M PRN IV Hypoglycemia 09/23/19 08:15 10/23/19 08:14 Losartan Potassium (Cozaar) 50 mg DAILY ORAL 09/23/19 09:00 10/23/19 08:59 09/24/19 09:15 Metoprolol Tartrate (Lopressor) 25 mg Q12HR ORAL 09/23/19 09:00 10/23/19 08:59 09/24/19 20:54 Ondansetron HCl (Zofran) 4 mg Q6H PRN IVP Nausea & Vomiting 09/23/19 08:15 10/23/19 08:14 09/24/19 05:36 Ruperto Pisano MD Sep 25, 2019 06:49
[2019-09-25 06:57] LABS: BASOPHILS % (AUTO) 0.3 % (0.0-2.0); EOSINOPHILS % (AUTO) 0.4 % (0.0-3.0); HEMATOCRIT 33.2 % (37.0-47.0); HEMOGLOBIN 12.2 G/DL (12.0-16.0); LYMPHOCYTES % (AUTO) 27.7 % (20.0-45.0); MEAN CORPUSCULAR VOLUME 89 FL (80-99); MONOCYTES % (AUTO) 7.9 % (1.0-10.0); NEUTROPHILS % (AUTO) 63.6 % (45.0-75.0); PLATELET COUNT 183 K/UL (150-450); RED BLOOD COUNT 3.72 M/UL (4.20-5.40); WHITE BLOOD COUNT 6.5 K/UL (4.8-10.8)
--- NOTE | 2019-09-25 07:02 | NUR ---
HAND-OFF: Report given to Mine Rn, pt. remains stable and no signs of distress noted.
--- NOTE | 2019-09-25 07:06 | NUR ---
HAND-OFF: Report given to Mine Rn, pt. remains stable and no signs of distress noted.
[2019-09-25 07:44] LABS: ANION GAP 7 mmol/L (5-15); BLOOD UREA NITROGEN 9 mg/dL (7-18); CALCIUM 8.7 MG/DL (8.5-10.1); CARBON DIOXIDE 31 MMOL/L (21-32); CHLORIDE 96 MMOL/L (98-107); CREATININE 0.8 MG/DL (0.55-1.30); SODIUM 134 MMOL/L (136-145)
[2019-09-25 08:00] VITALS: BP 131/60
[2019-09-25] MEDS: Aspirin Baby 81mg ORAL SCH (08:47)
[2019-09-25] MEDS: Losartan 50mg tab ORAL SCH (08:48)
--- NOTE | 2019-09-25 08:56 | NUR ---
CASE MANAGEMENT:REVIEW 09/25/19 SI: SYNCOPE. HYPONATREMIA 98.2 72 18 131/60 96% ON 2L/NC K-3.0 IS: ASA PO QD COZAAR PO QD LOPRESSOR PO Q12 : TELEMETRY STATUS DCP: FROM HOME PLAN: PATIENT IS INDEPENDENT AND AMBULATING 250 FT ~ [facility] DECLINED TO ACCEPT
--- NOTE | 2019-09-25 09:01 | NUR ---
DISCHARGE PLANNING PATIENT IS AMBULATING 250 FT [facility] DECLINED TO ACCEPT ....NO CRITERIA FOR ARU MESSAGE LEFT FOR DR HUNTER
[2019-09-25] MEDS: Albuterol/Ipratropium 3ml neb HHN PRN ×3 (10:01→21:09)
--- NOTE | 2019-09-25 10:20 | General Progress Note ---
Assessment/Plan Problem List: (1) HTN (hypertension) ICD Codes: I10 - Essential (primary) hypertension SNOMED: 68312622 (2) Diabetes ICD Codes: E11.9 - Type 2 diabetes mellitus without complications SNOMED: 03904768 (3) Malnutrition ICD Codes: E46 - Unspecified protein-calorie malnutrition SNOMED: 00619377 (4) Hyponatremia ICD Codes: E87.1 - Hypo-osmolality and hyponatremia SNOMED: 09198425 (5) Syncope ICD Codes: R55 - Syncope and collapse SNOMED: 114635800 Qualifiers: Qualified Codes: R55 - Syncope and collapse Status: stable, progressing Assessment/Plan: pt diet cardio neuro eval cbc bmp am aru eval vs dc plan w hh Subjective Constitutional: Reports: weakness Allergies: Coded Allergies: AZITHROMYCIN (Verified Allergy, Unknown, 05/29/15) PENICILLIN (Verified Allergy, Unknown, 05/29/15) TETRACYCLINE (Verified Allergy, Unknown, 05/29/15) All Systems: reviewed and negative except above Subjective feeling better calm Objective Last 24 Hour Vital Signs Date Time Temp Pulse Resp B/P (MAP) Pulse Ox O2 Delivery O2 Flow Rate FiO2 09/25/19 10:01 76 18 99 Nasal Cannula 2.0 28 65 18 96 09/25/19 08:48 72 131/60 09/25/19 08:48 131/60 09/25/19 08:00 98.2 72 18 131/60 (83) 96 09/25/19 07:00 75 18 96 Nasal Cannula 2.0 28 09/25/19 07:00 96 Nasal Cannula 2.0 28 09/25/19 04:00 2.0 09/25/19 04:00 97.7 65 18 131/59 (83) 98 09/25/19 03:27 60 09/25/19 00:00 2.0 09/25/19 00:00 76 82 81 09/25/19 00:00 98.1 76 18 130/62 (84) 98 09/24/19 23:31 84 09/24/19 21:00 Room Air 09/24/19 20:54 93 126/62 09/24/19 20:00 99.1 95 16 126/62 (83) 97 09/24/19 20:00 2.0 09/24/19 20:00 76 20 98 Nasal Cannula 2.0 28 09/24/19 19:57 95 Nasal Cannula 2.0 28 09/24/19 19:53 79 09/24/19 19:52 80 20 99 Nasal Cannula 2.0 28 76 20 98 09/24/19 16:00 99.3 77 18 144/56 (85) 96 09/24/19 16:00 71 09/24/19 12:00 98.4 69 18 145/65 (91) 95 09/24/19 12:00 108 09/24/19 12:00 68 145 73 Intake and Output 09/24/19 09/25/19 19:00 07:00 Intake Total 630 ml Balance 630 ml Intake Oral 630 ml # Voids 3 2 # Bowel Movements 1 1 Laboratory Tests 09/25/19 05:25: White Blood Count 6.5, Red Blood Count 3.72L, Hemoglobin 12.2, Hematocrit 33.2L , Mean Corpuscular Volume 89, Mean Corpuscular Hemoglobin 32.8H, Mean Corpuscular Hemoglobin Concent 36.8H, Red Cell Distribution Width 11.0L, Platelet Count 183, Mean Platelet Volume 7.2, Neutrophils (%) (Auto) 63.6, Lymphocytes (%) (Auto) 27.7, Monocytes (%) (Auto) 7.9, Eosinophils (%) (Auto) 0.4, Basophils (%) (Auto) 0.3, Sodium Level 134L, Potassium Level 3.0L, Chloride Level 96L, Carbon Dioxide Level 31, Anion Gap 7, Blood Urea Nitrogen 9 , Creatinine 0.8, Estimat Glomerular Filtration Rate , Glucose Level 105, Calcium Level 8.7 Height (Feet): 5 Height (Inches): 4.00 Weight (Pounds): 170 General Appearance: alert EENT: normal ENT inspection Neck: normal alignment Cardiovascular: normal peripheral pulses, normal rate, regular rhythm Respiratory/Chest: chest wall non-tender, lungs clear, normal breath sounds Abdomen: normal bowel sounds, non tender, soft Extremities: normal inspection Edema: no edema noted Arm (L), no edema noted Arm (R), no edema noted Leg (L), no edema noted Leg (R), no edema noted Pedal (L), no edema noted Pedal (R), no edema noted Generalized Neurologic: motor weakness Skin: normal pigmentation, warm/dry Amadou Calvert DO Sep 25, 2019 10:20
[2019-09-25] MEDS ORDERED: Tubing IV Secondary IV ONE (10:24)
[2019-09-25] MEDS ORDERED: D5NS 1000ml IV ONE (10:24)
--- NOTE | 2019-09-25 10:30 | NUR ---
NURSE NOTES: pt was taken off from NC 2L; saturating in room air 98%, pt is not complaining of shortness of breath.
--- NOTE | 2019-09-25 11:10 | Cardiac Electrophysiology PN ---
Assessment/Plan Assessment/Plan 1. Syncopal episode. Etiology is not clear at this time. Ruled out for [place]. Echocardiogram nl EF and no . No critical issues on carotid duplex Orthostatic vital signs were also negative. Zio patch as out patient 2. History of hypertension.Stable on metoprolol 25 mg b.i.d. and losartan 50 mg daily. 3. History of asthma 4. Hypokalemia, K 3 again today, replaced again today 5. Hyponatremia,better now 3.4. FU DR Barrios RN. Subjective Subjective No CP or SOB, In SR with no arrhythmias. On Room Air now. Objective Last 24 Hour Vital Signs Date Time Temp Pulse Resp B/P (MAP) Pulse Ox O2 Delivery O2 Flow Rate FiO2 09/25/19 10:01 76 18 99 Nasal Cannula 2.0 28 65 18 96 09/25/19 08:48 72 131/60 09/25/19 08:48 131/60 09/25/19 08:00 98.2 72 18 131/60 (83) 96 09/25/19 08:00 76 09/25/19 07:00 75 18 96 Nasal Cannula 2.0 28 09/25/19 07:00 96 Nasal Cannula 2.0 28 09/25/19 04:00 2.0 09/25/19 04:00 97.7 65 18 131/59 (83) 98 09/25/19 03:27 60 09/25/19 00:00 2.0 09/25/19 00:00 76 82 81 09/25/19 00:00 98.1 76 18 130/62 (84) 98 09/24/19 23:31 84 09/24/19 21:00 Room Air 09/24/19 20:54 93 126/62 09/24/19 20:00 99.1 95 16 126/62 (83) 97 09/24/19 20:00 2.0 09/24/19 20:00 76 20 98 Nasal Cannula 2.0 28 09/24/19 19:57 95 Nasal Cannula 2.0 28 09/24/19 19:53 79 09/24/19 19:52 80 20 99 Nasal Cannula 2.0 28 76 20 98 09/24/19 16:00 99.3 77 18 144/56 (85) 96 09/24/19 16:00 71 09/24/19 12:00 98.4 69 18 145/65 (91) 95 09/24/19 12:00 108 09/24/19 12:00 68 145 73 Intake and Output 09/24/19 09/25/19 19:00 07:00 Intake Total 630 ml Balance 630 ml Intake Oral 630 ml # Voids 3 2 # Bowel Movements 1 1 Laboratory Tests Test 09/25/19 05:25 White Blood Count 6.5 K/UL (4.8-10.8) Red Blood Count 3.72 M/UL (4.20-5.40) L Hemoglobin 12.2 G/DL (12.0-16.0) Hematocrit 33.2 % (37.0-47.0) L Mean Corpuscular Volume 89 FL (80-99) Mean Corpuscular Hemoglobin 32.8 PG (27.0-31.0) H Mean Corpuscular Hemoglobin Concent 36.8 G/DL (32.0-36.0) H Red Cell Distribution Width 11.0 % (11.6-14.8) L Platelet Count 183 K/UL (150-450) Mean Platelet Volume 7.2 FL (6.5-10.1) Neutrophils (%) (Auto) 63.6 % (45.0-75.0) Lymphocytes (%) (Auto) 27.7 % (20.0-45.0) Monocytes (%) (Auto) 7.9 % (1.0-10.0) Eosinophils (%) (Auto) 0.4 % (0.0-3.0) Basophils (%) (Auto) 0.3 % (0.0-2.0) Sodium Level 134 MMOL/L (136-145) L Potassium Level 3.0 MMOL/L (3.5-5.1) L Chloride Level 96 MMOL/L (98-107) L Carbon Dioxide Level 31 MMOL/L (21-32) Anion Gap 7 mmol/L (5-15) Blood Urea Nitrogen 9 mg/dL (7-18) Creatinine 0.8 MG/DL (0.55-1.30) Estimat Glomerular Filtration Rate mL/min (>60) Glucose Level 105 MG/DL (74-106) Calcium Level 8.7 MG/DL (8.5-10.1) Objective HEAD AND NECK: No JVD. Has a bruise on left eye. LUNGS: Clear. CARDIOVASCULAR: Shows regular S1 and S2 with no gallop or murmur. ABDOMEN: Soft. EXTREMITIES: No pitting edema. Tarun Flores MD Sep 25, 2019 11:10
--- NOTE | 2019-09-25 11:22 | Nephrology Progress Note ---
Assessment/Plan Status: stable, progressing Assessment/Plan: A/P 1) Hyponatremia - Na 134 - hold Thiazide - OK for DC from renal point 2) Syncope- per cardiology 3) HTN- stable adjust meds as necessary Can follow up as out pt Subjective Date patient seen: Sep 25, 2019 Time patient seen: 11:21 ROS Limited/Unobtainable: No Allergies: Coded Allergies: AZITHROMYCIN (Verified Allergy, Unknown, 05/29/15) PENICILLIN (Verified Allergy, Unknown, 05/29/15) TETRACYCLINE (Verified Allergy, Unknown, 05/29/15) Subjective Patient feeling better. Poss DC today Objective Last 24 Hour Vital Signs Date Time Temp Pulse Resp B/P (MAP) Pulse Ox O2 Delivery O2 Flow Rate FiO2 09/25/19 10:01 76 18 99 Nasal Cannula 2.0 28 65 18 96 09/25/19 08:48 72 131/60 09/25/19 08:48 131/60 09/25/19 08:00 98.2 72 18 131/60 (83) 96 09/25/19 08:00 76 09/25/19 07:00 75 18 96 Nasal Cannula 2.0 28 09/25/19 07:00 96 Nasal Cannula 2.0 28 09/25/19 04:00 2.0 09/25/19 04:00 97.7 65 18 131/59 (83) 98 09/25/19 03:27 60 09/25/19 00:00 2.0 09/25/19 00:00 76 82 81 09/25/19 00:00 98.1 76 18 130/62 (84) 98 09/24/19 23:31 84 09/24/19 21:00 Room Air 09/24/19 20:54 93 126/62 09/24/19 20:00 99.1 95 16 126/62 (83) 97 09/24/19 20:00 2.0 09/24/19 20:00 76 20 98 Nasal Cannula 2.0 28 09/24/19 19:57 95 Nasal Cannula 2.0 28 09/24/19 19:53 79 09/24/19 19:52 80 20 99 Nasal Cannula 2.0 28 76 20 98 09/24/19 16:00 99.3 77 18 144/56 (85) 96 09/24/19 16:00 71 09/24/19 12:00 98.4 69 18 145/65 (91) 95 09/24/19 12:00 108 09/24/19 12:00 68 145 73 Intake and Output 09/24/19 09/25/19 19:00 07:00 Intake Total 630 ml Balance 630 ml Intake Oral 630 ml # Voids 3 2 # Bowel Movements 1 1 Laboratory Tests 09/25/19 05:25: White Blood Count 6.5, Red Blood Count 3.72L, Hemoglobin 12.2, Hematocrit 33.2L , Mean Corpuscular Volume 89, Mean Corpuscular Hemoglobin 32.8H, Mean Corpuscular Hemoglobin Concent 36.8H, Red Cell Distribution Width 11.0L, Platelet Count 183, Mean Platelet Volume 7.2, Neutrophils (%) (Auto) 63.6, Lymphocytes (%) (Auto) 27.7, Monocytes (%) (Auto) 7.9, Eosinophils (%) (Auto) 0.4, Basophils (%) (Auto) 0.3, Sodium Level 134L, Potassium Level 3.0L, Chloride Level 96L, Carbon Dioxide Level 31, Anion Gap 7, Blood Urea Nitrogen 9 , Creatinine 0.8, Estimat Glomerular Filtration Rate , Glucose Level 105, Calcium Level 8.7 Height (Feet): 5 Height (Inches): 4.00 Weight (Pounds): 170 General Appearance: no apparent distress, alert EENT: normal ENT inspection Neck: normal alignment Cardiovascular: regular rhythm Respiratory/Chest: lungs clear, normal breath sounds Abdomen: non tender, soft Edema: no edema noted Arm (L), no edema noted Arm (R), no edema noted Leg (L), no edema noted Leg (R), no edema noted Pedal (L), no edema noted Pedal (R), no edema noted Generalized Adair Starkey MD Sep 25, 2019 11:22
[2019-09-25 11:56] VITALS: BP 123/60
[2019-09-25 16:00] VITALS: BP 114/62
--- NOTE | 2019-09-25 16:36 | NUR ---
*-*DISCHARGE PLANNING*-* PATIENT HAS BEEN REFERRED TO: [facility] P: [phone] F: [phone] *-*CLINICALS FAXED*-*
--- NOTE | 2019-09-25 16:41 | NUR ---
*-*DISCHARGE PLANNING*-* PATIENT HAS BEEN REFERRED TO: [facility] P: [phone] F: [phone] EMAIL: [email or web address] *-*CLINICALS EMAILED*-* *-*CLINICALS FAXED*-*
--- NOTE | 2019-09-25 19:37 | NUR ---
NURSE NOTES: Received report from KELVIN Blount. patient is awake lying semi fowlers, watching TV, resting comfortably. No signs of acute distress noted, denies pain at this time. AO x 4 able to make needs known. Ambulates to the bathroom with assistance. Checked IV site; patent and flushed. no erythema, bleeding, or infiltration noted. Bed at lowest position, brakes on, side rails up x 3. Call light within reach. Will continue plan of care.
[2019-09-25 20:00] VITALS: BP 135/73
[2019-09-26] VITALS: BP 131/59
[2019-09-26 04:00] VITALS: BP 132/68
--- NOTE | 2019-09-26 04:36 | NUR ---
NURSE NOTES: Patient is asleep lying semi-carvalho's; resting comfortably. No signs of acute distress or pain noted at this time.
--- NOTE | 2019-09-26 06:22 | General Progress Note ---
Assessment/Plan Problem List: (1) Hyperglycemia ICD Codes: R73.9 - Hyperglycemia, unspecified SNOMED: 95882700 (2) Fibula fracture ICD Codes: S82.409A - Unspecified fracture of shaft of unspecified fibula, initial encounter for closed fracture SNOMED: 09055794 (3) Hyponatremia ICD Codes: E87.1 - Hypo-osmolality and hyponatremia SNOMED: 62377975 (4) Syncope ICD Codes: R55 - Syncope and collapse SNOMED: 166571076 Qualifiers: Qualified Codes: R55 - Syncope and collapse Status: stable, progressing Assessment/Plan: follow A1c - pending no need to for glucose monitoring or insulin coverage Subjective Allergies: Coded Allergies: AZITHROMYCIN (Verified Allergy, Unknown, 05/29/15) PENICILLIN (Verified Allergy, Unknown, 05/29/15) TETRACYCLINE (Verified Allergy, Unknown, 05/29/15) Subjective events noted interval notes reviewed glucose is stable Objective Last 24 Hour Vital Signs Date Time Temp Pulse Resp B/P (MAP) Pulse Ox O2 Delivery O2 Flow Rate FiO2 09/26/19 04:00 98.1 68 20 132/68 (89) 96 09/26/19 04:00 66 09/26/19 00:00 97.9 70 20 131/59 (83) 97 09/26/19 00:00 66 09/26/19 00:00 67 66 70 09/25/19 21:13 95 Nasal Cannula 2.0 28 09/25/19 21:13 71 18 95 Nasal Cannula 2.0 28 09/25/19 21:09 75 18 99 Nasal Cannula 2.0 28 71 18 95 09/25/19 21:00 Room Air 09/25/19 20:52 73 135/73 09/25/19 20:00 99.1 73 20 135/73 (93) 96 09/25/19 20:00 69 09/25/19 16:00 68 09/25/19 16:00 97.5 70 18 114/62 (79) 98 09/25/19 12:00 67 09/25/19 12:00 61 63 65 09/25/19 11:56 98.2 61 18 123/60 (81) 98 09/25/19 10:30 18 98 09/25/19 10:01 76 18 99 Nasal Cannula 2.0 28 65 18 96 09/25/19 09:00 Nasal Cannula 2.0 09/25/19 08:48 72 131/60 09/25/19 08:48 131/60 09/25/19 08:00 98.2 72 18 131/60 (83) 96 09/25/19 08:00 76 09/25/19 07:00 75 18 96 Nasal Cannula 2.0 28 09/25/19 07:00 96 Nasal Cannula 2.0 28 Intake and Output 09/25/19 09/26/19 19:00 07:00 Intake Total 1000 ml Balance 1000 ml Intake Oral 1000 ml # Voids 4 2 # Bowel Movements 1 1 Height (Feet): 5 Height (Inches): 4.00 Weight (Pounds): 170 General Appearance: no apparent distress Neck: normal alignment Cardiovascular: normal rate Respiratory/Chest: lungs clear Abdomen: normal bowel sounds Objective Current Medications Medications (Trade) Dose Ordered Sig/Maik Route PRN Reason Start Time Stop Time Status Last Admin Dose Admin Acetaminophen (Tylenol) 650 mg Q4H PRN ORAL Mild Pain (Pain Scale 1-3) 09/23/19 08:15 10/23/19 08:14 Albuterol/ Ipratropium (Albuterol/ Ipratropium) 3 ml Q6HRT PRN HHN Shortness of Breath 09/23/19 22:30 09/28/19 22:29 09/25/19 21:09 Aspirin (ASA) 81 mg DAILY ORAL 09/23/19 09:00 10/23/19 08:59 09/25/19 08:47 Dextrose (Dextrose 50%) 25 ml Q30M PRN IV Hypoglycemia 09/23/19 08:15 10/23/19 08:14 Dextrose (Dextrose 50%) 50 ml Q30M PRN IV Hypoglycemia 09/23/19 08:15 10/23/19 08:14 Losartan Potassium (Cozaar) 50 mg DAILY ORAL 09/23/19 09:00 10/23/19 08:59 09/25/19 08:48 Metoprolol Tartrate (Lopressor) 25 mg Q12HR ORAL 09/23/19 09:00 10/23/19 08:59 09/25/19 20:52 Ondansetron HCl (Zofran) 4 mg Q6H PRN IVP Nausea & Vomiting 09/23/19 08:15 10/23/19 08:14 2/4/20 05:36 Ruperto Pisano MD Sep 26, 2019 06:22
[2019-09-26 07:06] LABS: BASOPHILS % (AUTO) 0.4 % (0.0-2.0); EOSINOPHILS % (AUTO) 1.5 % (0.0-3.0); HEMATOCRIT 34.6 % (37.0-47.0); HEMOGLOBIN 12.6 G/DL (12.0-16.0); LYMPHOCYTES % (AUTO) 32.5 % (20.0-45.0); MEAN CORPUSCULAR VOLUME 88 FL (80-99); MONOCYTES % (AUTO) 8.2 % (1.0-10.0); NEUTROPHILS % (AUTO) 57.4 % (45.0-75.0); PLATELET COUNT 212 K/UL (150-450); RED BLOOD COUNT 3.91 M/UL (4.20-5.40); RED CELL DISTRIBUTION WIDTH 11.2 % (11.6-14.8); WHITE BLOOD COUNT 5.6 K/UL (4.8-10.8)
[2019-09-26 07:13] LABS: ANION GAP 5 mmol/L (5-15); BLOOD UREA NITROGEN 9 mg/dL (7-18); CALCIUM 9.3 MG/DL (8.5-10.1); CARBON DIOXIDE 31 MMOL/L (21-32); CHLORIDE 100 MMOL/L (98-107); CREATININE 0.7 MG/DL (0.55-1.30); POTASSIUM 4.3 MMOL/L (3.5-5.1); SODIUM 136 MMOL/L (136-145)
--- NOTE | 2019-09-26 07:29 | NUR ---
HAND-OFF: Report given to KELVIN Wooten. Patient is awake lying high-carvalho's eating breakfast. In stable condition.
--- NOTE | 2019-09-26 07:30 | NUR ---
NURSE NOTES: Received pt from ADELE WARREN, Pt is awake and alert, pt is in RA, no SOB or acute respiratory distress noted. pt has intact iv access LAC 20G SL. pt has bruises around both eyes. Pt is eating breakfast with observation, all needs attended, bed is locked and is in the lowest position, call light within easy reach. will continue to monitor.
[2019-09-26 08:00] VITALS: BP 136/88
[2019-09-26] MEDS: Aspirin Baby 81mg ORAL SCH (08:16)
[2019-09-26] MEDS: Losartan 50mg tab ORAL SCH (08:16)
--- NOTE | 2019-09-26 09:06 | Cardiac Electrophysiology PN ---
Assessment/Plan Assessment/Plan 1. Syncopal episode. Etiology is not clear at this time. Ruled out for AK. Echo Nl EF and no . No critical issues on carotid duplex Orthostatic vital signs were also negative. Zio patch as out patient 2. Hypertension.Continue metoprolol 25 mg b.i.d. and losartan 50 mg daily. 3. History of asthma 4. Hypokalemia, K 3 again today, replaced again today 5. Hyponatremia, better now 3.4. FU Dr. Barrios RN OK to DC from cardiac standpoint. Subjective Subjective No CP or SOB, In SR. Wants to go home. Objective Last 24 Hour Vital Signs Date Time Temp Pulse Resp B/P (MAP) Pulse Ox O2 Delivery O2 Flow Rate FiO2 09/26/19 08:16 71 136/88 09/26/19 08:16 136/88 09/26/19 08:00 97.7 71 18 136/88 (104) 96 09/26/19 04:00 98.1 68 20 132/68 (89) 96 09/26/19 04:00 66 09/26/19 00:00 97.9 70 20 131/59 (83) 97 09/26/19 00:00 66 09/26/19 00:00 67 66 70 09/25/19 21:13 95 Nasal Cannula 2.0 28 09/25/19 21:13 71 18 95 Nasal Cannula 2.0 28 09/25/19 21:09 75 18 99 Nasal Cannula 2.0 28 71 18 95 09/25/19 21:00 Room Air 09/25/19 20:52 73 135/73 09/25/19 20:00 99.1 73 20 135/73 (93) 96 09/25/19 20:00 69 09/25/19 16:00 68 09/25/19 16:00 97.5 70 18 114/62 (79) 98 09/25/19 12:00 67 09/25/19 12:00 61 63 65 09/25/19 11:56 98.2 61 18 123/60 (81) 98 09/25/19 10:30 18 98 09/25/19 10:01 76 18 99 Nasal Cannula 2.0 28 65 18 96 Intake and Output 09/25/19 09/26/19 19:00 07:00 Intake Total 1000 ml Balance 1000 ml Intake Oral 1000 ml # Voids 4 2 # Bowel Movements 1 1 Laboratory Tests Test 09/26/19 05:29 White Blood Count 5.6 K/UL (4.8-10.8) Red Blood Count 3.91 M/UL (4.20-5.40) L Hemoglobin 12.6 G/DL (12.0-16.0) Hematocrit 34.6 % (37.0-47.0) L Mean Corpuscular Volume 88 FL (80-99) Mean Corpuscular Hemoglobin 32.4 PG (27.0-31.0) H Mean Corpuscular Hemoglobin Concent 36.6 G/DL (32.0-36.0) H Red Cell Distribution Width 11.2 % (11.6-14.8) L Platelet Count 212 K/UL (150-450) Mean Platelet Volume 6.6 FL (6.5-10.1) Neutrophils (%) (Auto) 57.4 % (45.0-75.0) Lymphocytes (%) (Auto) 32.5 % (20.0-45.0) Monocytes (%) (Auto) 8.2 % (1.0-10.0) Eosinophils (%) (Auto) 1.5 % (0.0-3.0) Basophils (%) (Auto) 0.4 % (0.0-2.0) Sodium Level 136 MMOL/L (136-145) Potassium Level 4.3 MMOL/L (3.5-5.1) Chloride Level 100 MMOL/L (98-107) Carbon Dioxide Level 31 MMOL/L (21-32) Anion Gap 5 mmol/L (5-15) Blood Urea Nitrogen 9 mg/dL (7-18) Creatinine 0.7 MG/DL (0.55-1.30) Estimat Glomerular Filtration Rate mL/min (>60) Glucose Level 99 MG/DL (74-106) Hemoglobin A1c 5.7 % (4.3-6.0) Calcium Level 9.3 MG/DL (8.5-10.1) Objective HEAD AND NECK: No JVD. Has a bruise on left eye. LUNGS: Clear. CARDIOVASCULAR: Shows regular S1 and S2 with no gallop or murmur. ABDOMEN: Soft. EXTREMITIES: No pitting edema. Tarun Flores MD Sep 26, 2019 09:06
[2019-09-26] MEDS ORDERED: ASPIRIN81 MG ORAL (09:36)
--- NOTE | 2019-09-26 09:54 | NUR ---
NURSE NOTES: pt has discharge order, all D/C assessments and instructions done and pt verbally confirmed to understand all. pt is stable, V/S stable. Dr PETE and CHRISTINA cleared pt to D/C. Per Dr PETE pt go to office out patient for ZIO PATCH. pt has DR PETE phone number and office address. [phone]. pt is D/C with hospital meds per Dr HUNTER, pt knows about all meds and verbally confirmed to understand all. waiting for friend MOISES to pick pt up. will continue to monitor.
[2019-09-26 11:00] VITALS: BP 138/85
--- NOTE | 2019-09-26 11:11 | NUR ---
NURSE NOTES: pt is stable, V/S stable, all belongings are with pt and she signed belongings list. pt left hospital with accompany friend
--- NOTE | 2019-09-27 22:41 | Discharge Summary ---
Discharge Summary Discharge Summary _ DATE OF ADMISSION: 09/23/2019 DATE OF DISCHARGE: 09/26/2019 DISCHARGED BY: Dr Calvert REASON FOR ADMISSION: 79 years old female with past medical history of hypertension, asthma, smoking, presented with syncopal episode 2 hours prior prior to arrival , associated with acute nausea and vomiting. She passed out in the bathroom and hit her head. She denied chest pain or shortness of breath. No history of heart attack. Upon evaluation in emergency department CT of the head revealed no acute intracranial pathology. Chest x-ray demonstrated no acute cardiopulmonary pathology. Laboratory work-up revealed no leukocytosis , stable hemoglobin and hematocrit. Troponin negative. Sodium 128 , potassium 3.2. Glucose 170. Stable LFT and renal parameters. In emergency room patient received 2 L of IV fluids with normal saline. Patient subsequently admitted for syncope and hyponatremia. CONSULTANTS: correspondence section supervisor Dr. Velazquez law professor Dr. Pisano prenatal genetic counselor Dr.De Quinn [employer] [facility]RSE: Patient admitted to telemetry floor. Echocardiogram demonstrated preserved ejection fraction of 55 to 60%. Right ventricular systolic pressure of 37 consistent with a mild pulmonary hypertension; no evidence of wall motion abnormality. No aortic stenosis. Serial troponin were negative. EKG revealed no acute ischemic changes. Patient was ruled out for acute myocardial infarction. Orthostatic vital signs were negative. Per correspondence section supervisor , etiology of syncopal episode was not cleared, possibly due to volume depletion. To exclude cardiac causes, correspondence section supervisor recommended Zio patch as outpatient. Blood pressure was managed with beta-kun and ARB , and remained stable. Supplemental oxygen was on board as needed along with the bronchodilator therapy. No evidence of asthma exacerbation. Potassium replaced. Hyponatremia work-up initiated. Per prenatal genetic counselor, hyponatremia was most likely due to volume depletion, since patient was on hydrochlorothiazide, which was discontinued. Patient started on isotonic solution. Sodium was closely monitored and prior to discharge 131. Patient was instructed not to resume hydrochlorothiazide upon discharge. Hemoglobin A1c 5.7. No need for glucose monitoring or insulin coverage. Patient was educated no concentrated sweets diet. Patient clinically stabilized and was ready for discharge home with home health services to follow . FINAL DIAGNOSES: Syncopal episode , possibly due to volume depletion 2 to hydrochlorothiazide Hyponatremia, likely due to volume depletion /hydrochlorothiazide - improved Hypertension Hypokalemia History of asthma DISCHARGE MEDICATIONS: See Medication Reconciliation list. DISCHARGE INSTRUCTIONS: Patient was discharged home with home health services. Follow up with primary care provider in one week. Follow-up with correspondence section supervisor for Zio-patch I have been assigned to dictate discharge summary for this account. I was not involved in the patient's management. Masha Eaton NP Sep 27, 2019 22:41
== END 2019-09-26 11:13 | disposition home health service (06) | DRG 641 ==
LOC: EMR 02:15 → 2E 03:01 → EDBEDREQ 04:18
DX: E87.1 Hypo-osmolality and hyponatremia (principal); E46 Unspecified protein-calorie malnutrition; R55 Syncope and collapse; E86.9 Volume depletion, unspecified; T50.2X5A Adverse effect of carbonic-anhydrase inhibitors, benzothiadiazides and other diuretics, initial encounter; Z68.29 Body mass index [BMI] 29.0-29.9, adult; E87.6 Hypokalemia; Z88.1 Allergy status to other antibiotic agents; Z88.0 Allergy status to penicillin; Z88.8 Allergy status to other drugs, medicaments and biological substances; I10 Essential (primary) hypertension; E11.9 Type 2 diabetes mellitus without complications; F17.200 Nicotine dependence, unspecified, uncomplicated
CPT/HCPCS: 36415; 70450; 71045; 80048; 80053; 83036; 83880; 84484; 85025; 93005; 93306; 93880; 94640; 94664; 96360; 99285; J2405; J7030; J7620; J8499